=== PATIENT | female | born 1975 | race Caucasian/White ===

== ENCOUNTER 2018-02-28 08:49 | Emergency (ER) | payer BC ==
[2018-02-28 09:11] VITALS: BP 132/57
--- NOTE | 2018-02-28 09:44 | UC ---
Skin Complaint HPI - HPI Summary HPI Summary: Pt presents with c/o sudden onset of painful, excoriated skin to left breast. 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 Pt states that she worked the night prior to noticing painful area on left breast. - History of Current Complaint Chief Complaint: UCSkin Time Seen by Provider: 02/28/18 09:03 Stated Complaint: SKIN CONCERN-L BREAST Hx Last Menstrual Period: "I don't get a period because I have PCOS..." Onset/Duration: Sudden Onset, Lasting Days Skin Exposure Onset/Duration: Days Ago Timing: Constant Onset Severity: Mild Current Severity: Mild Pain Intensity: 4 Location: Discrete - left breast Character: Redness, Painful Aggravating Factor(s): Touch Alleviating Factor(s): Nothing Associated Signs & Symptoms: Positive: Rash, Tenderness Related History: Possible Reaction to: Environmental Exposure - Allergy/Home Medications Allergies/Adverse Reactions: Allergies Allergy/AdvReac Type Severity Reaction Status Date / Time No Known Allergies Allergy Verified 02/28/18 09:07 Home Medications: Home Medications LORazepam TAB(*) [Ativan 0.5 MG TAB (*)] 0.5 mg PO QID PRN 02/28/18 [History Confirmed 02/28/18] Lisinopril TAB* [Prinivil TAB 10 MG*] 10 mg PO DAILY 02/28/18 [History Confirmed 02/28/18] Norethindrone [Yuni-Be] 0.35 mg PO DAILY 02/28/18 [History Confirmed 02/28/18] Venlafaxine EXT RELEASE CAP* [Effexor Xr CAP*] 75 mg PO DAILY 02/28/18 [History Confirmed 02/28/18] Review of Systems All Other Systems Reviewed And Are Negative: Yes Constitutional: Positive: Negative Skin: Positive: Rash Eyes: Positive: Negative ENT: Positive: Negative Respiratory: Positive: Negative Cardiovascular: Positive: Negative Gastrointestinal: Positive: Negative Genitourinary: Positive: Negative Motor: Positive: Negative Neurovascular: Positive: Negative Musculoskeletal: Positive: Negative Neurological: Positive: Negative Psychological: Positive: Negative Is Patient Immunocompromised?: No PMH/Surg Hx/FS Hx/Imm Hx Previously Healthy: Yes - Surgical History Surgical History: Yes Surgery Procedure, Year, and Place: Right Wrist Carpal Tunnel, ~2013, [place]; Cholecystectomy, ~1993, [place] - Family History Known Family History: Positive: Cardiac Disease - Social History Occupation: Employed Full-time Lives: With Family Alcohol Use: None Substance Use Type: Marijuana Substance Use Comment - Amount & Last Used: Daily & 02/27/18 Smoking Status (MU): Never Smoked Tobacco Have You Smoked in the Last Year: Yes - marijuana Physical Exam Triage Information Reviewed: Yes Appearance: Well-Appearing Vital Signs: Initial Vital Signs Temp 98.3 F 02/28/18 09:04 Pulse 98 02/28/18 09:04 Resp 14 02/28/18 09:04 BP 132/57 02/28/18 09:04 Pulse Ox 98 02/28/18 09:04 Vital Signs Reviewed: Yes Eye Exam: Normal ENT Exam: Normal Dental Exam: Normal Neck exam: Normal Respiratory Exam: Normal Cardiovascular Exam: Normal Musculoskeletal Exam: Normal Neurological Exam: Normal Psychological Exam: Normal Skin Exam: Other - excoriated skin, with yellow crusting, ~ 3cm length X 2 cm wide. lateral left breast. Course/Dx - Course Course Of Treatment: I discussed wit pt the need to f/u wiht her PCP as soon as possible. - Differential Diagnoses - Skin Complaint Differential Diagnoses: Cellulitis, Eczema, Tinea - Diagnoses Provider Diagnoses: cellulitis. tinea Discharge - Sign-Out/Discharge Documenting (check all that apply): Patient Departure All imaging exams completed and their final reports reviewed: No Studies - Discharge Plan Condition: Stable Disposition: HOME Prescriptions: Cephalexin CAP* [Keflex 500 CAP*] 500 mg PO TID #21 cap Clotrimazole 1% CREAM* [Clotrimazole 1%*] 1 applic TOPICAL BEDTIME 7 Days #1 tube Mupirocin 2% OINT* [Bactroban 2 % Oint*] 1 applic TOPICAL BID 7 Days #1 tube Patient Education Materials: Cellulitis (ED) Referrals: Chris Carbone MD [Primary Care Provider] - As Soon As Possible - Billing Disposition and Condition Condition: STABLE Disposition: Home
== END 2018-02-28 09:43 | disposition home or self-care (01) ==
LOC: UCCORT 08:49
DX: N61.0 Mastitis without abscess (principal); B35.9 Dermatophytosis, unspecified
CPT/HCPCS: 99202; G0463